=== PATIENT | male | born 1945 | race Caucasian/White ===

== ENCOUNTER → 2016-10-29 | Emergency (ER) | payer MEDICARE, OTHER ==
[~2016-10-29] VITALS: Ht 186.7 cm; Wt 94.8 kg
[~2016-10-29] MED LIST: AMLO1CAP5 PO; ARGI500C9 PO; ASCO10006 PO; ASPI-504 PO; CHOL200018 PO; CIPROFLOXACIN (CIPRO) 500 MG TABLET PO ONE; CPR500T PO; CRAN400C PO; GINK120T4 PO; GLUC1CAP34 PO; HYDR-3702 PO; HYDROmorphone 1 MG/ML (DILAUDID) SYRINGE IV ONE; KETOROLAC 30 MG/ML (TORADOL) 1 ML VIAL IV ONE; LEVOFLOXACIN 500 MG/100 ML IV 100 ML IV ONE; METR500T17 PO; MULT1TAB PO; NIAC500T9 PO; OMEG1CAP24 PO; ONDA4TAB8 PO; ONDANSETRON 2 MG/ML (Z0FRAN) 2 ML VIAL IV ONE; POME1CAP PO; SMV20T PO; ZINC50TA31 PO; metroNIDAZOLE 500 MG (FLAGYL) TABLET PO ONE
--- OUTSIDE RECORDS SUMMARY | 2016-10-29 14:42 | XMS REPORT | Summary of Care ---
Author Author Obinna Weinstein M.D. Unknown Address Unknown Phone Unavailable Care Team Providers [facility] [employer]ic Name Role Phone Neville Trevino M.D. Unavailable Unavailable Adelso Weinstein M.D. 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 Other eczema (692.9, L30.8) Status: Active Other benign neoplasm of skin of lower extremity, including hip (216.7, D23.70 ) Status: Active Actinic keratosis (702.0, L57.0) Status: Active Dysplastic nevus of left upper extremity (216.6, D22.62) Status: Active Seborrheic keratosis (702.19, L82.1) Status: Active Amnesia (780.93, R41.3) Status: Active Transient amnesia (780.93, R41.3) Status: Active Transient ischemic attack involving carotid artery (435.8, G45.1) Status: Active Memory loss (780.93, R41.3) Status: Active Alcohol abuse (305.00, F10.10) Status: Active Medications Name Dates Details Clobetasol Propionate 0.05 % External Cream APPLY A THIN LAYER TO THE AFFECTED AREAS TWICE DAILY Quantity: 60 Refills: 0 Ambrose Trevino M.D. Start 07-Jun-2014 Active Amlodipine Besy-Benazepril HCl - 5-20 MG Oral Capsule take 1 capsule daily Refills: 0 Start 27-Jun-2015 Active ClonazePAM 1 MG Oral Tablet Take 1 tablet at bedtime Refills: 0 Start 27-Jun-2015 Active Centrum Silver Oral Tablet TAKE 1 TABLET DAILY. Refills: 0 Start 27-Jun-2015 Active Vitamin D3 5000 UNIT Oral Tablet Take 1 tablet daily Refills: 0 Start 27-Jun-2015 Active Vitamin C 1000 MG Oral Tablet Refills: 0 Start 27-Jun-2015 Active Co Q 10 100 MG Oral Capsule TAKE 1 CAPSULE TWICE DAILY. Refills: 0 Start 27-Jun-2015 Active Niacin 500 MG Oral Tablet TAKE 1 TABLET DAILY DIRECTED. Refills: 0 Start 27-Jun-2015 Active Zinc 100 MG Oral Tablet TAKE 1 TABLET DAILY. Refills: 0 Start 27-Jun-2015 Active Cranberry 300 MG Oral Tablet Take 1 tablet daily Refills: 0 Start 27-Jun-2015 Active Biotin 1 MG Oral Capsule take 1 capsule daily Refills: 0 Start 27-Jun-2015 Active Aspirin 81 MG Oral Tablet Delayed Release TAKE 1 TABLET DAILY. Refills: 0 Obinna Weinstein M.D. Start 02-Jul-2016 Active Allergies and Adverse Reactions Name Dates Details No Known Drug Allergies (Allergy) Status: Active Past Medical History Name Dates Details History of BPH (benign prostatic hyperplasia) (600.00, N40.0) Status: Resolved History of headache (V13.89, Z87.898) Status: Resolved History of hypertension (V12.59, Z86.79) Status: Resolved History of low back pain (V13.59, Z87.39) Status: Resolved History of skin cancer (V10.83, Z85.828) Status: Resolved History of transient cerebral ischemia (V12.54, Z86.73) Status: Resolved History of Visual floaters (379.24, H43.399) Status: Resolved Procedures Procedure Dates Details History of Shoulder Surgery History of Transurethral Resection Of Prostate (TURP) History of Tonsillectomy Procedures not documented Immunization Name Dates Details Immunizations not documented Family History Name Dates Details Family history of malignant neoplasm of breast (V16.3, Z80.3) Status: Active Name Dates Details Family history of congestive heart failure (V17.49, Z82.49) Status: Active Family history of peripheral vascular disease (V17.49, Z82.49) Status: Active Name Dates Details Family history of glioblastoma (V16.8, Z80.8) Status: Active Family history of glaucoma (V19.11, Z83.511) Status: Active Family history of BPH (benign prostatic hyperplasia) (600.00, N40.0) Status: Active Social History Name Dates Details - Status: Name Dates Details Unknown if ever smoked Former smoker Vital Signs Date Test Result Details 27-Jul-2016 08:46 BP Systolic 138 mm[Hg] Status: Comments: Location: LUE; Position: Sitting BP Diastolic 80 mm[Hg] Status: Comments: Location: LUE; Position: Sitting Heart Rate 70 /min Status: Comments: Location: ; Weight 213.8 lb Status: Physical Findings 95 Status: Comments: O2 Saturation Body Mass Index Calculated 29 kg/m2 Status: Body Surface Area Calculated 2.19 m2 Status: 02-Jul-2016 10:22 BP Systolic 132 mm[Hg] Status: Comments: Location: LUE; Position: Sitting BP Diastolic 78 mm[Hg] Status: Comments: Location: LUE; Position: Sitting Heart Rate 69 /min Status: Comments: Location: ; Height 72 in Status: Weight 211.4 lb Status: Physical Findings 95 Status: Comments: O2 Saturation Body Mass Index Calculated 28.67 kg/m2 Status: Body Surface Area Calculated 2.18 m2 Status: Results Date Description Value Details Results not documented Plan of Care Name Dates Details Planned Observations Planned Goals not documented Planned Encounters Appointment; Provider: Ambrose Trevino M.D. On 09:00 Instructions Name Dates Details Instructions not documented Encounters Appointment; Obinna Weinstein M.D. Encounter Diagnosis: Problem not documented On 22-Jul-2016 12:00 Appointment; Obinna Weinstein M.D. Encounter Diagnosis: Problem not documented On 02-Jul-2016 10:00 Appointment; Ambrose Trevino M.D. Encounter Diagnosis: Problem not documented On 25-Jun-2016 09:00 Appointment; Ambrose Trevino M.D. Encounter Diagnosis: Problem not documented On 08:45 Appointment; Ambrose Trevino M.D. Encounter Diagnosis: Problem not documented On 11-Jul-2015 08:45 Appointment; Ambrose Trevino M.D. Encounter Diagnosis: Problem not documented On 27-Jun-2015 09:30 Appointment; Ambrose Trevino M.D. Encounter Diagnosis: Problem not documented On 05:00 Appointment; Ambrose Trevino M.D. Encounter Diagnosis: Problem not documented On 09:30
[2016-10-29 15:30] LABS: BASOPHILS % (AUTO) 0 % (0-2); EOSINOPHILS # (AUTO) 0.1 10^3uL; EOSINOPHILS % (AUTO) 1 % (0-4); LYMPHOCYTES # (AUTO) 0.8 X10^3; MEAN CORPUSCULAR HEMOGLOBIN 30.9 PG (26.0-34.0); MEAN CORPUSCULAR HGB CONC 35.2 g/dL (31.0-37.0); MEAN CORPUSCULAR VOLUME 88 FL (80-100); MEAN PLATELET VOLUME 9.7 FL (6.0-9.5); MONOCYTES # (AUTO) 0.9 X10^3; MONOCYTES % (AUTO) 10 % (3-11); NEUTROPHILS # (AUTO) 7.6 X10^3; NEUTROPHILS % (AUTO) 81 % (51-67); PLATELET COUNT 253 10^3uL (150-450); WHITE BLOOD COUNT 9.37 10^3uL (4.0-11.0)
[2016-10-29 15:44] LABS: ALBUMIN 3.9 g/dL (3.4-5.0); TOTAL PROTEIN 7.4 g/dL (6.4-8.5)
[2016-10-29 15:54] LABS: BILIRUBIN,URINE Negative (Negative); CLARITY,URINE Clear; COLOR,URINE Yellow; GLUCOSE, URINE (UA) Negative (Negative); LEUKOCYTE ESTERASE ,URINE Negative (Negative); PH,URINE 8.5 (5.0 - 8.0); UROBILINOGEN,URINE 0.2 mg/dL (0.2-1.0)
--- NOTE | 2016-10-29 16:33 | Diagnostic Imaging Report ---
PROCEDURE: CT abdomen and pelvis without contrast. TECHNIQUE: Multiple contiguous axial images were obtained through the abdomen and pelvis without the use of intravenous contrast. INDICATION: Pain. COMPARISON: No priors for comparison. FINDINGS: The findings are most consistent with acute sigmoid diverticulitis at the level of its middle third in the left lower quadrant. There is regional diverticuli, sigmoidal thickening, edema, and infiltration of the perisigmoidal fat. No extraluminal air to suggest a transmural perforation. No abscess, fluid collection, or appreciable free fluid. The appendix is visualized, air-containing, and normal. There is no bowel obstruction. There is no hydronephrosis. No opaque kidney stone. The remaining unopacified abdominal/pelvic solid and hollow viscera are unremarkable. IMPRESSION: The findings are most consistent with sigmoid diverticulitis without findings suggestive of transmural perforation, abscess, or obstruction. No other acute pathology. Dictated by: Dictated on workstation # [id number]
[2016-10-29 19:26] VITALS: BP 154/84
== END | disposition home or self-care (01) ==
LOC: ED 14:42
DX: K57.32 Diverticulitis of large intestine without perforation or abscess without bleeding (principal); R33.9 Retention of urine, unspecified; Z87.891 Personal history of nicotine dependence; I10 Essential (primary) hypertension
CPT/HCPCS: 36415; 51702; 51798; 74176; 80053; 81003; 82150; 83605; 83690; 84439; 84443; 85025; 86140; 96374; 96375; 99283; A9270; J1170; J1885; J2405; 99284